=== PATIENT | female | born 1995 | race Caucasian/White ===

== ENCOUNTER 2018-05-31 15:46 | Observation (INO) | payer OTHER ==
[2018-05-31] MEDS ORDERED: Ondansetron PF 4 MG/2 ML Vial ONE (16:24)
[2018-05-31 16:36] LABS: #Basophils 0.1 thou/uL (0.0-0.2); #Lymphocytes 1.5 thou/uL (1.20-3.40); #Monocytes 0.8 thou/uL (0.11-0.59); #Neutrophils 14.6 thou/uL (1.40-6.50); %Basophils 0.5 % (0.0-1.0); %Eosinophils 0.2 % (0.0-10.0); %Monocytes 4.9 % (0.0-10.0); %Neutrophils 85.5 % (42.0-75.0); Hemoglobin 14.3 g/dL (12.0-16.0); Mean Corpuscular HGB CONC 33.1 g/dL (32.0-36.0); Mean Corpuscular Volume 90.7 fL (78.0-98.0); Mean Platelet Volume 7.8 fL (7.4-10.4); Platelet Count 186 thou/uL (130-400); RBC Distribution Width 10.7 % (11.5-14.5); Red Blood Cell (RBC) Count 4.76 mill/uL (4.20-5.40); White Blood Cell (WBC) Count 17.1 thou/uL (4.8-10.8)
[2018-05-31 16:45] LABS: BHCG - Serum Negative (NEGATIVE); Pregs Control Background? CLEAR/WHITE (CLR/WHITE); Pregs Control Bar Appear? YES (CONTROL BAR)
[2018-05-31 16:54] LABS: ALT (SGPT) 17 U/L (8-55); AST (SGOT) 19 U/L (5-34); Albumin 4.7 g/dL (3.5-5.0); Alkaline Phosphatase 54 U/L (40-150); Anion Gap 15 mmol/L (10-20); BUN (Urea Nitrogen) 9 mg/dL (7.0-18.7); Bilirubin, Total 0.7 mg/dL (0.2-1.2); Calc. Creatinine Clearance 0 mL/min (70-130); Calcium 9.8 mg/dL (7.8-10.44); Carbon Dioxide 24 mmol/L (22-29); Chloride 103 mmol/L (98-107); Estimated GFR-MDRD 83; Globulin 3.3 g/dL (2.4-3.5); Glucose 93 mg/dL (70-105); Lipase 27 U/L (8-78); Potassium 4.3 mmol/L (3.5-5.1); Sodium 138 mmol/L (136-145)
[2018-05-31 17:35] LABS: Bilirubin Negative (Negative); Blood, Urine Negative (Negative); Clarity Clear (Clear); Glucose, Urine (Dipstick) Negative (Negative); Leukocyte Negative (Negative); Nitrite Negative (Negative); Protein, Urine (Dipstick) Negative (Neg-Trace); Urobilinogen 0.2 mg/dL (0.2-1.0); pH, Urine 5.5 (5.0-9.0)
[2018-05-31] MEDS ORDERED: Piperacillin/Tazobactam 4.5 GM VIAL ONE (19:16)
--- NOTE | 2018-05-31 20:21 | CT ---
CONTRAST ENHANCED CT IMAGES ABDOMEN AND PELVIS: 05/31/18 HISTORY: Right lower quadrant pain. Contrast enhanced CT images of the abdomen and pelvis is obtained after administration of IV and oral contrast. The lung bases are unremarkable. No evidence of free intraperitoneal air is seen. The liver, spleen, pancreas, gallbladder, adrenal glands and kidneys are unremarkable. No dilated loo ps of small bowel seen. The small bowel and colon are opacified with the oral contrast. The appendix ; however, does not fill. There is also mild appendiceal wall enhancement. The appendix is not signif icantly dilated measuring up to approximately 6 to 7 mm but does have some minimal periappendiceal fa t stranding. Findings compatible with early changes of acute appendicitis. No definite evidence of ab scess seen. IMPRESSION: Some enhancement and nonfilling of the appendicitis with slight periappendiceal fat stranding. Findin gs compatible with acute appendicitis. POS: [facility]IZA
[2018-05-31] MEDS ORDERED: Morphine 4 MG/ML VIAL ONE (22:39)
[2018-06-01] MEDS ORDERED: hydrALAZINE 20 MG/ML VIAL SLOW IVP PRN (01:18)
[2018-06-01] MEDS ORDERED: Acetaminophen 1,000 MG in Premix Bag 1 BAG IVPB PRN (01:18)
[2018-06-01] MEDS ORDERED: Promethazine HCl 25 MG/ML VIAL IM PRN ×2 (01:18→06:53)
[2018-06-01] MEDS ORDERED: Dextrose 50% Abboject 50 ML SYRINGE SLOW IVP PRN (01:18)
[2018-06-01] MEDS ORDERED: Dextrose 5% in Water 1,000 ML IV PRN (01:18)
[2018-06-01] MEDS ORDERED: Ketorolac Tromethamine 30 MG/ML VIAL IVP PRN (01:18)
[2018-06-01] MEDS ORDERED: Ondansetron PF 4 MG/2 ML Vial IVP PRN (01:18)
[2018-06-01] MEDS ORDERED: Morphine 2 MG/ML SYRINGE SLOW IVP PRN (01:36)
[2018-06-01] MEDS: Piperacillin/Tazobactam 3.375 GM in Sodium Chloride 0.9% 100 ML IVPB SCH ×3 (02:01→14:13)
[2018-06-01] MEDS: D5 1/2 NS w/20 mEq KCL 1,000 ML IV SCH ×2 (02:12→14:13)
[2018-06-01 03:32] VITALS: BMI 19.3
[2018-06-01] MEDS ORDERED: Bupivacaine/Epinephrine 0.25% 30 ML VIAL ONE (03:49)
[2018-06-01] MEDS ORDERED: Fentanyl 100 MCG/2 ML VIAL ONE ×2 (05:58→07:04)
[2018-06-01] MEDS ORDERED: SUGAMMADEX SODIUM 500 MG/5 ML VIAL ONE (06:45)
[2018-06-01] MEDS ORDERED: Promethazine HCl 25 MG/ML VIAL SLOW IVP PRN (06:53)
[2018-06-01] MEDS ORDERED: Ondansetron HCl/PF 4 MG/2 ML Vial IVP PRN (06:53)
--- NOTE | 2018-06-01 07:24 | OP ---
DATE OF PROCEDURE: 06/01/2018 PREOPERATIVE DIAGNOSIS: Acute appendicitis. POSTOPERATIVE DIAGNOSIS: Acute appendicitis. PROCEDURE: Laparoscopic appendectomy. SURGEON: Juan Lovett M.D. ANESTHESIA: General. ESTIMATED BLOOD LOSS: Minimal. COMPLICATIONS: None. SPECIMEN: Appendix. FINDINGS: Appendicitis. TECHNIQUE: The patient was taken to the operating room and placed supine on the table. After genera l anesthetic was obtained, a Zuleta was placed. The abdomen was shaved, prepped, and draped in a ster ile fashion. A curved incision made below the umbilicus. Cautery was used to dissect down to and sc ore the fascia. Abdominal cavity was entered bluntly using a Rosy clamp. Holding stitch of PDS brooks evelin on each side of the fascia. Simeon trocar was placed. High-flow pneumoperitoneum was obtained. A suprapubic 5 mm port and a right lower quadrant 5 mm port were placed under direct visualization. The appendix was rolled over to reveal acute appendicitis. A small window was made at the base of t he appendix and mesoappendix. Laparoscopic stapler was fired across the base of the appendix and rel oad fired across the mesoappendix. Appendix placed in an Endo Catch bag and brought out through the Paul. All port sites were infiltrated using local anesthetic. The right lower quadrant and pelvis were irrigated using sterile solution. There is no bleeding, no evidence of perforation, no damage to any intraabdominal structures. All ports are removed under direct visualization. Pneumoperitoneu m was let down. PDS was used to close the fascial defect below the umbilicus. All incisions were ir rigated and closed using 4-0 Monocryl and Dermabond. The patient was en route to recovery in stable condition. All sponge counts, needle counts, lap counts were correct.
--- NOTE | 2018-06-01 07:29 | HP ---
DATE OF ADMISSION: 05/31/2018 CHIEF COMPLAINT: Right lower quadrant pain. HISTORY OF PRESENT ILLNESS: This is a 23-year-old female, who presents with a history of right lower quadrant pain since this morning at 08:30 a.m. Pain is described as 8/10 and sharp, does not radiat e, it actually improved when she came to the emergency room and had some pain medicine. CT scan show s acute appendicitis. She has never had pain like this before. Denies chronic abdominal pain or inf lammatory bowel disease. No change in stools, no dysuria. PAST MEDICAL HISTORY: She denies. PAST SURGICAL HISTORY: She denies. MEDICINES TAKEN DAILY: control pill. ALLERGIES: No known drug allergies. SOCIAL HISTORY: No smoking, alcohol, or other drugs. She is a student. REVIEW OF SYSTEMS: Ten-system review of systems, otherwise, negative unless described above. PHYSICAL EXAMINATION: HEENT: Sclerae are anicteric. Oropharynx clear. NECK: No lymphadenopathy. CHEST: Clear. HEART: Regular rate and rhythm. ABDOMEN: Soft, tender right lower quadrant with localized guarding, without rebound, no abdominal or inguinal hernias. EXTREMITIES: No ischemia or edema to extremities. LABORATORY DATA: White cell count is 17, hemoglobin 14, platelet count is 186, creatinine 0.86. CT scan shows acute appendicitis. ASSESSMENT: Acute appendicitis. PLAN: Laparoscopic appendectomy. Risks, benefits, and alternatives discussed. She gives consent. We will do this today.
[2018-06-01] MEDS ORDERED: HYDROcodone/Acetaminophen 7.5/325 mg Tablet PO PRN (07:44)
[2018-06-01] MEDS ORDERED: Famotidine 20 MG TAB PO SCH (09:00)
[2018-06-01] MEDS ORDERED: Famotidine/PF 20 mg/2ml Vial SLOW IVP SCH (09:00)
[2018-06-01 12:34] VITALS: BP 96/60; TEMP 98.2
[2018-06-01] MEDS ORDERED: Ketorolac Tromethamine 30 MG/ML VIAL ONE (16:45)
[2018-06-01] MEDS ORDERED: Dexamethasone 20 MG/5 ML VIAL ONE (16:45)
[2018-06-01] MEDS ORDERED: Glycopyrrolate 0.2 MG/ML 5 ML SYRINGE ONE (16:45)
[2018-06-01] MEDS ORDERED: Lidocaine 1% PF 5 ML VIAL ONE (16:45)
[2018-06-01] MEDS ORDERED: Ondansetron PF 4 MG/2 ML Vial ONE (16:45)
[2018-06-01] MEDS ORDERED: PROPOFOL 200 MG/20 ML VIAL ONE (16:45)
[2018-06-02 22:35] LABS: Chlamydia by PCR Not Detected (NotDetected); GC by PCR Not Detected (NotDetected)
== END 2018-06-01 14:15 | disposition home or self-care (01) ==
LOC: SCSER 15:46 → SDC/OP 19:44 → SURG B 06-01 01:08
PROVIDERS: ADMIT Surgery; ATTEND Surgery
PROC: 0DTJ4ZZ Resection of Appendix, Percutaneous Endoscopic Approach (ICD-10-PCS; principal; 2018-06-01)
DX: K35.80 Unspecified acute appendicitis (principal); Z79.3 Long term (current) use of hormonal contraceptives
CPT/HCPCS: 74177; 80053; 81003; 83690; 84703; 85025; 87480; 87491; 87510; 87591; 87660; 88304; 96361; 96365; 96366; 96374; 96375; 96376; G0378; J1100; J1885; J2001; J2270; J2405; J2543; J2704; J3010; J7050; S0028